=== PATIENT | male | born 1990 | race Caucasian/White ===

== ENCOUNTER 2019-03-03 23:04 | Emergency (ER) | payer SELFPAY ==
[~2019-03-03] VITALS: Ht 162.6 cm; Wt 75.3 kg
[~2019-03-03 23:04] MED LIST: APAP/HYDROCODON1 T13 PO; CYCLOBENZAPRINE5 MG PO; MOTRIN800 MG PO
[2019-03-03 23:15] VITALS: Ht 162.6 cm; Wt 75.3 kg
[2019-03-04 00:59] VITALS: BP 121/82
== END 2019-03-04 00:59 | disposition home or self-care (01) ==
LOC: ED 23:04
DX: M54.6 Pain in thoracic spine (principal)
CPT/HCPCS: J1885; Q0092